=== PATIENT | male | born 1985 | race Caucasian/White ===

== ENCOUNTER 2017-01-23 14:39 | Emergency (ER) | payer SELFPAY ==
[~2017-01-23] VITALS: Ht 172.7 cm; Wt 82.0 kg
[~2017-01-23 14:39] MED LIST: Z.0.NO CURRENT MEDS
[2017-01-23 14:43] VITALS: BP 129/81; PULSE 80; RESP 17; TEMP 98.3; O2SAT 96
[2017-01-23] MEDS ORDERED: SODIUM CHLOR 0.9% 1000 ML INJ 1,000 ML IV ONE (15:02)
[2017-01-23] MEDS ORDERED: ONDANSETRON HCL 4 MG/2 ML VIAL IVP ONE (15:15)
[2017-01-23] MEDS: SODIUM CHLORIDE 0.9% FLUSH 5 ML FLUSH IVF PRN ×2 (15:22→17:47)
--- NOTE | 2017-01-23 15:25 | PD ---
HPI Chief Complaint: OD/ Ingestion Time Seen by Provider: 15:13 Travel History International Travel<30 days: No Contact w/Intl Traveler<30days: No Traveled to known affect area: No History of Present Illness HPI Patient comes in after being found facedown on the [address]. Per EMS patient still had the needle in his arm. Patient was given 0.4 Narcan en route that woke him up. Patient states that he injected himself with heroin today. Patient reports he was standing up when he injected does not recall what happened. Patient states he normally injected Dilaudid but this his second time using heroin as it is cheaper currently. Patient's only medical complaint currently is feeling nauseous. Patient denies any chest pain, shortness of breath, abdominal pain, vomiting, diarrhea, fevers, neck pain, facial pain, or headache. PFSH Past Medical History Medical History: Denies Significant Hx Tetanus Vaccination: Unknown Influenza Vaccination: No Social History Alcohol Use: Yes (OCCASIONALLY) Tobacco Use: Yes Substance Use: Yes (ANUPAM, DILAUDID AND HEROINE) Allergies-Medications (Allergen,Severity, Reaction): Coded Allergies: No Known Allergies (Verified Allergy, Mild, 06/11/06) Reported Meds & Prescriptions Reported Meds & Active Scripts Active Reported No Current Meds (Miscellaneous Medication) Misc Review of Systems Except as stated in HPI: all other systems reviewed are Neg Physical Exam Narrative GENERAL: Well-developed, well nourished, in no acute distress, and non-ill appearing. SKIN: Warm and dry. HEAD: Atraumatic. Normocephalic. EYES: Pupils equal and round. EOMI. No scleral icterus. No injection or drainage. ENT: No nasal bleeding or discharge. Mucous membranes pink and moist. NECK: Trachea midline. No JVD. Supple. No nuclear rigidity. CARDIOVASCULAR: Regular rate and rhythm. No murmur appreciated. RESPIRATORY: No accessory muscle use. No respiratory distress. Clear to auscultation. Breath sounds equal bilaterally. GASTROINTESTINAL: Abdomen soft, non-tender, nondistended. Hepatic and splenic margins not palpable. Normal bowel sounds 4. No pulsatile mass. MUSCULOSKELETAL: No obvious deformities. No clubbing. No cyanosis. No edema. Full range of motion. NEUROLOGICAL: Awake and alert. No obvious cranial nerve deficits. Motor grossly within normal limits. Normal speech. PSYCHIATRIC: Appropriate mood and affect; insight and judgment normal. Data Data Last Documented VS Vital Signs Date Time Temp Pulse Resp B/P Pulse Ox O2 Delivery O2 Flow Rate FiO2 01/23/17 18:29 62 105/58 99 Room Air 01/23/17 14:46 18 2 01/23/17 14:43 98.3 Orders Basic Metabolic Panel (Bmp) (01/23/17 15:02) Complete Blood Count With Diff (01/23/17 15:02) Ct Brain W/O Iv Contrast(Rout) (01/23/17 15:02) Iv Access Insert/Monitor (01/23/17 15:02) Ecg Monitoring (01/23/17 15:02) Oximetry (01/23/17 15:02) Ondansetron Inj (Zofran Inj) (01/23/17 15:15) Sodium Chloride 0.9% Flush (Ns Flush) (01/23/17 15:15) Sodium Chlor 0.9% 1000 Ml Inj (Ns 1000 M (01/23/17 15:02) Ct Facial Bones W/O Iv Cont (01/23/17 ) Ct Cerv Spine W/O Contrast (01/23/17 ) Potassium Chloride (Kcl) (01/23/17 16:30) Labs Laboratory Tests Test 01/23/17 15:00 White Blood Count 6.2 TH/MM3 Red Blood Count 4.56 MIL/MM3 Hemoglobin 13.9 GM/DL Hematocrit 39.1 % Mean Corpuscular Volume 85.6 FL Mean Corpuscular Hemoglobin 30.5 PG Mean Corpuscular Hemoglobin 35.6 % Concent Red Cell Distribution Width 14.0 % Platelet Count 228 TH/MM3 Mean Platelet Volume 7.9 FL Neutrophils (%) (Auto) 52.6 % Lymphocytes (%) (Auto) 37.0 % Monocytes (%) (Auto) 8.1 % Eosinophils (%) (Auto) 1.9 % Basophils (%) (Auto) 0.4 % Neutrophils # (Auto) 3.3 TH/MM3 Lymphocytes # (Auto) 2.3 TH/MM3 Monocytes # (Auto) 0.5 TH/MM3 Eosinophils # (Auto) 0.1 TH/MM3 Basophils # (Auto) 0.0 TH/MM3 CBC Comment DIFF FINAL Differential Comment Sodium Level 138 MEQ/L Potassium Level 3.0 MEQ/L Chloride Level 100 MEQ/L Carbon Dioxide Level 27.7 MEQ/L Anion Gap 10 MEQ/L Blood Urea Nitrogen 8 MG/DL Creatinine 0.92 MG/DL Estimat Glomerular Filtration 95 ML/MIN Rate Random Glucose 123 MG/DL Calcium Level 8.5 MG/DL MDM Medical Decision Making Medical Screen Exam Complete: Yes Emergency Medical Condition: Yes Differential Diagnosis Closed head injury, heroin overdose, fracture, contusion, strain, electrolyte abnormality, other Narrative Course Patient in no obvious distress upon re-evaluation. All pertinent laboratory/ Radiology result(s) discussed with patient. Patient was monitored in the emergency department for little over 4 hours and remained stable the entire time without any additional intervention required for his heroin overdose. I discussed patient with Dr. Yee, prior to discharge, who is in agreement with plan of care and disposition. Any questions/concerns in reference to patient diagnosis/condition discussed and clarified prior to patient's discharge. Reinforced sheer importance of close follow up with patient's primary physician or primary care clinic. Instructed patient to return to ED immediately, if symptoms return/worsen. Pt showed understanding of above instructions. Further instructions and recommendations were detailed in discharge paperwork. Pt ambulated without difficulty out of ED at discharge. Diagnosis Primary Impression: Accidental overdose of heroin Qualified Code: T40.1X1A - Accidental overdose of heroin, initial encounter Additional Impression: Hypokalemia Referrals: [facility] Patient Instructions: Adult Overdose (ED), General Instructions, Hypokalemia ( ED) Additional Instructions: Follow-up with your primary care physician and/or [facility] for detoxification. Stop doing drugs. Return to the emergency department if symptoms get worse or for emergent concerns. Disposition: 01 DISCHARGE HOME Condition: Stable Owen Owen Jan 23, 2017 15:25
--- NOTE | 2017-01-23 15:37 | RADRPT ---
EXAM DATE/TIME: 01/23/2017 15:28 [facility] COMPARISON: No previous studies available for comparison. INDICATIONS : Fall. No complaints. RADIATION DOSE: 31.79 CTDIvol (mGy) MEDICAL HISTORY : None SURGICAL HISTORY : None. ENCOUNTER: Initial ACUITY: 1 day PAIN SCALE: 0/10 LOCATION: cranial TECHNIQUE: Multiple contiguous axial images were obtained of the head. Using automated exposure control and adj ustment of the mA and/or kV according to patient size, radiation dose was kept as low as reasonably a chievable to obtain optimal diagnostic quality images. FINDINGS: CEREBRUM: The ventricles are normal for age. No evidence of midline shift, mass lesion, hemorrhage or acute in farction. No extra-axial fluid collections are seen. POSTERIOR FOSSA: The cerebellum and brainstem are intact. The 4th ventricle is midline. The cerebellopontine angle i s unremarkable. EXTRACRANIAL: The visualized portion of the orbits is intact. SKULL: The calvaria is intact. No evidence of skull fracture. CONCLUSION: Negative noncontrast head CT. Paul Marroquin MD on January 23, 2017 at 15:36 Board Certified Radiologist. This report was verified electronically.
[2017-01-23 15:51] LABS: AUTOMATED NEUTROPHIL # 3.3 TH/MM3 (1.8-7.7); BASOPHIL % 0.4 % (0.0-2.0); EOSINOPHIL # 0.1 TH/MM3 (0-0.4); EOSINOPHIL % 1.9 % (0.0-4.0); HEMATOCRIT 39.1 % (39.0-51.0); HEMO FLAGS DIFF FINAL; LYMPHOCYTE # 2.3 TH/MM3 (1.0-4.8); MEAN CELL VOLUME 85.6 FL (80.0-100.0); MEAN CORPUSCULAR HEMOGLOBIN 30.5 PG (27.0-34.0); MEAN CORPUSCULAR HGB CONC 35.6 % (32.0-36.0); MONO % 8.1 % (0.0-8.0); NEUT % 52.6 % (16.0-70.0); PLATELET COUNT 228 TH/MM3 (150-450); RED BLOOD COUNT 4.56 MIL/MM3 (4.50-5.90); WHITE BLOOD COUNT 6.2 TH/MM3 (4.0-11.0)
--- NOTE | 2017-01-23 15:54 | RADRPT ---
EXAM DATE/TIME: 01/23/2017 15:28 [facility] COMPARISON: No previous studies available for comparison. INDICATIONS : Fall. RADIATION DOSE: 34.08 CTDIvol (mGy) MEDICAL HISTORY : None SURGICAL HISTORY : None. ENCOUNTER: Initial ACUITY: 1 day PAIN SCORE: 0/10 LOCATION: facial TECHNIQUE: Volumetric scanning of the facial bones was performed. Using automated exposure control and adjustme nt of the mA and/or kV according to patient size, radiation dose was kept as low as reasonably achiev able to obtain optimal diagnostic quality images. FINDINGS: ORBITS: The orbital and infraorbital osseous structures are intact. The retroconal structures have a normal configuration. No radiopaque foreign bodies are seen. NASAL BONE: The nasal bone and maxillary spine are intact ZYGOMATIC ARCHES: Symmetric without evidence of fracture. SINUSES: Mucous retention cyst within the maxillary sinuses. Nichelle bullosa of middle turbinates. Septum devia aziza to the right. NASAL CAVITY: The nasal septum is intact and midline. The lacrimal ducts are intact. SOFT TISSUES: No radiopaque foreign bodies seen. No soft-tissue swelling is seen. INTRACRANIAL: No intracranial air seen. CRIBIFORM PLATE: Grossly intact. CONCLUSION: 1. No facial fracture. 2. Scattered sinus disease predominantly within the maxillary sinuses. Anton Paredes MD on January 23, 2017 at 15:51 Board Certified Radiologist. This report was verified electronically.
--- NOTE | 2017-01-23 16:02 | RADRPT ---
EXAM DATE/TIME: 01/23/2017 15:28 [facility] COMPARISON: No previous studies available for comparison. INDICATIONS : Fall. No other complaints. RADIATION DOSE: 19.88 CTDIvol (mGy) MEDICAL HISTORY : None SURGICAL HISTORY : None. ENCOUNTER: Initial ACUITY: 1 day PAIN SCALE: 0/10 LOCATION: neck TECHNIQUE: Volumetric scanning of the cervical spine was performed. Multiplanar reconstructions in the sagittal, coronal and oblique axial planes were performed. Using automated exposure control and adjustment o f the mA and/or kV according to patient size, radiation dose was kept as low as reasonably achievable to obtain optimal diagnostic quality images. FINDINGS: VERTEBRAE: Normal vertebral body height. No fracture. ALIGNMENT: No evidence of subluxation. The facets are well aligned. Craniocervical junction intact. CONCLUSION: 1. No fracture or subluxation. Anton Paredes MD on January 23, 2017 at 15:59 Board Certified Radiologist. This report was verified electronically.
[2017-01-23 16:08] LABS: BICARBONATE 27.7 MEQ/L (21.0-32.0)
[2017-01-23] MEDS ORDERED: POTASSIUM CHLORIDE 10 MEQ CONTROLLED RELEASE TAB PO ONE (16:30)
[2017-01-23 18:29] VITALS: BP 105/58; PULSE 62; O2SAT 99
== END 2017-01-23 19:29 | disposition home or self-care (01) ==
LOC: NEPA 14:39
DX: T40.1X1A Poisoning by heroin, accidental (unintentional), initial encounter (principal); E87.6 Hypokalemia; Z72.0 Tobacco use
CPT/HCPCS: 70450; 70486; 72125; 80048; 85025; 96361; 96374; 99285; J2405; J7030